=== PATIENT | male | born 1945 | race Caucasian/White ===

== ENCOUNTER → 2023-04-29 | Outpatient (CLI) | payer MEDICARE ==
--- NOTE | 2023-05-01 16:27 | CT ---
EXAMINATION TYPE: CT lumbar spine wo con DATE OF EXAM: 04/29/2023 COMPARISON: None HISTORY: 77-year-old male M48.062, low back pain x 2month, no known injury. TECHNIQUE: Contiguous axial scanning of the lumbar spine without IV contrast. Coronal and sagittal re constructions performed. CT DLP: 664.0 mGycm Automated exposure control for dose reduction was used. FINDINGS: Bilateral renal parapelvic cysts measuring up to 2.4 cm. Mild degenerative changes bilateral SI joints. Moderate multilevel degenerative disc disease with narrowing and bulging disks throughout. More moder ate to severe degenerative disc disease L3-L4 and L5-S1. Multilevel hypertrophic facet arthropathy is present, particularly severe towards the right in the mi d and lower lumbar spine. There is a degenerated levoconvex curvature of the lumbar spine. Additional degenerative grade 1 retrolisthesis T12-L1, L1-L2, L2-L3. Remaining alignment is maintaine d. Wall vertebral body heights are preserved, multiple scattered small endplate Schmorl's nodes are pres ent in the lower thoracic and upper to mid lumbar spine. Disc bulging and ligamentum flavum thickening may contribute to a mild or moderate spinal canal steno sis at L1-L2, L2-L3, L3-L4. MRI can provide further assessment. On the right, changes result in severe neuroforaminal stenosis at L5-S1, moderate to severe at L2-L3, and moderate at L3-L4 and L4-L5. On the left, changes result in severe neuroforaminal stenosis at L5-S1, moderate to severe at L1-L2, and moderate at L2 through L5 levels. IMPRESSION: 1. 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 THERE IS MODERATE MULTILEVEL DEGENERATIVE DI SC DISEASE AND HYPERTROPHIC FACET ARTHROPATHY. THE FACET ARTHROPATHY ESPECIALLY GREATEST TOWARDS THE RIGHT IN THE MID AND LOWER LUMBAR SPINE. 2. DEGENERATIVE GRADE 1 RETROLISTHESIS T12 THROUGH L3 LEVELS. NO VERTEBRAL COMPRESSION COLLAPSE. 3. CHANGES RESULT IN MILD OR MODERATE SPINAL CANAL STENOSES FROM L1 THROUGH L4 LEVELS. MRI CAN PROVID E MORE DETAILED ASSESSMENT OF THE SPINAL CANAL. 4. 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 MODERATE TO SEV ERE ON THE RIGHT AT L2-L3 AND ON THE LEFT AT L1-L2. MODERATE AT ADDITIONAL LEVELS.
== END | disposition home or self-care (01) ==
LOC: RADCTMAIN 12:45
PROVIDERS: ATTEND Physical Medicine & Rehabilitation
DX: M47.26 Other spondylosis with radiculopathy, lumbar region (principal); M48.062 Spinal stenosis, lumbar region with neurogenic claudication; M51.16 Intervertebral disc disorders with radiculopathy, lumbar region; M16.11 Unilateral primary osteoarthritis, right hip; M43.16 Spondylolisthesis, lumbar region
CPT/HCPCS: 72131